=== PATIENT | female | born 1985 | race Caucasian/White ===

== ENCOUNTER 2019-09-25 13:03 | Emergency (ER) | payer BC ==
--- OUTSIDE RECORDS SUMMARY | 2019-09-25 13:26 | XMS REPORT | Continuity of Care Document ---
:1985 Author Organization 0001 - [facility] [employer] Address [address] [place] [address] Phone Care Team Providers Name Role Phone GENERIC, NURSE Unavailable Unavailable Allergies, Adverse Reactions, Alerts Substance Reaction Status lisinopril dry cough Active POTASSIUM CLAVULANATE Hives Active AMOXICILLIN TRIHYDRATE Hives Active Medications Medication Instructions Dosage Effective Dates Status Comments (start - stop) clindamycin HCl 150 take 1 capsule by 150 MG - Active mg capsule oral route every 6 hours amlodipine 10 mg take 1 tablet by 10 MG - Active tablet oral route every day cetirizine 10 mg take 1 tablet by 10 MG - Active tablet oral route every day Saline Nasal 0.65 % 2 sprays to each - Active spray aerosol nostril 3xday as needed for congestion and ear pain amlodipine 5 mg take 1 tablet by 5 MG - Active tablet oral route every day irbesartan 150 take 1 tablet by 1.00 tablet - Active mg-hydrochlorothiaz oral route every adriane 12.5 mg tablet day meclizine 25 mg take 1 tablet by 25 MG - Active tablet oral route 3 times every day as needed MISCELLANEOUS CPAP Mask for the - Active nose due to sleep apnea amlodipine 5 mg take 1 tablet by 5 MG - No Longer tablet oral route every Active day irbesartan 150 take 1 tablet by 1.00 tablet - No Longer mg-hydrochlorothiaz oral route every Active adriane 12.5 mg tablet day Problems Condition Effective Dates (start - stop) Clinical Status Essential (primary) hypertension - Otalgia of both ears Essential (primary) hypertension Body mass index (BMI) 70 or greater, adult Acute otitis media with effusion of left ear Dizziness Essential (primary) hypertension Pre-op evaluation Abnormal bleeding in menstrual cycle Essential (primary) hypertension Elevated blood sugar Encounter for other preprocedural - examination Pre-op evaluation Essential (primary) hypertension Abnormal bleeding in menstrual cycle Essential (primary) hypertension Headache Positive urine test Rectal bleeding Essential (primary) hypertension Type 2 diabetes mellitus without complications Essential (primary) hypertension Discoloration of skin of multiple sites of lower extremity Essential (primary) hypertension Obesity, unspecified Body mass index (BMI) 70 or greater, - adult BMI 60.0-69.9, adult Essential (primary) hypertension Other obesity due to excess calories Essential (primary) hypertension - Family history of diabetes mellitus - Essential (primary) hypertension Family history of diabetes mellitus Obesity, unspecified Type 2 diabetes mellitus without complications Bronchitis Encounter for gynecological examination (general) (routine) without abnormal findings Essential (primary) hypertension Type 2 diabetes mellitus without complications Obesity, unspecified Type 2 diabetes mellitus without - complications Essential (primary) hypertension - Hospital discharge follow-up Type 2 diabetes mellitus without complication Essential hypertension with goal blood pressure less than 140/90 Morbid obesity with BMI of 70 and over, adult Body mass index (bmi) 70 or greater, adult Sleep apnea, unspecified Numbness in hand Upper Respiratory Infection, Acute Bronchitis Cough Hypertension Upper Respiratory Infection, Acute Bronchitis Hypertension, benign essential Hypertension, benign essential Headache Headache Sleep apnea Hypertension, benign essential Change in facial mole Skin tag Obesity Menorrhagia due to intrauterine device Menorrhagia Encounter For Removal And - Reinsertion Of Intrauterine Contraceptive Device Encounter For Removal Of Intrauterine Contraceptive Device Encounter For Insertion Of Intrauterine Contraceptive Device Insect bites Poison levon Rash, oth nonspecific skin eruption Obesity Rash of face Rash, oth nonspecific skin eruption - Vaginitis Vaginitis - Hx, family, diabetes mellitus Obesity Hx, family, diabetes mellitus - Obesity - Family history of diabetes mellitus Obesity Hx, family, diabetes mellitus - Obesity - Contraceptive education Contraceptive management NOS - Upper Respiratory Infection, Acute Dental abscess Upper Respiratory Infection, Acute - Abscess, periapical w/o sinus - IUD check up Contraceptive surveillance, IUD - Dermatitis NOS - Ingrowing nail - Dermatophytosis, hand - Dermatitis NOS - Neop, NOS, bone/soft tissue/skin - Dermatitis NOS Dermatitis NOS - Dermatitis NOS Superficial abrasion Headache Dermatitis NOS - Abrasion NEC w/o infection - Headache - Eczema Dermatitis NOS - Abdominal pain Urinary Tract Infection Upper Respiratory Infection, Acute Upper Respiratory Infection, Acute Upper Respiratory Infection, Acute Sinusitis, Acute Upper Respiratory Infection, Acute Routine Medical Exam Cellulitis/abscess, buttock Gynecological Examination Contraceptive surveillance, IUD Bronchitis Pain, referred, ear Check, routine, infant/child - Upper Respiratory Infection, Acute Acute Upper Respiratory Infection, Acute Acute Sinusitis, Acute Acute Upper Respiratory Infection, Acute Acute Disorder, gallbladder NEC Acute Adverse effect, antibiotic NOS Acute Infection, up respirat, legal support assistant sites, Acute acute NEC Enteritis, viral NOS Acute Pain in limb Acute Nasopharyngitis, acute Acute Obesity Complicating ; Chronic Antepartum Condition Hypertension, benign essential Chronic Obesity Complicating ; Fair control Antepartum Condition HTN, benign, complg preg/, Fair control antepartum HTN, benign, complg preg/, Fair control antepartum Annual DIRECTOR E LEARNING exam w/ Pap Smear Good control Contraceptive surveillance, IUD Good control follow-up Good control HTN, benign, complg preg/, Good control antepartum HTN, benign, complg preg/, Good control antepartum Otalgia NOS Mild Neoplasm of skin of face Pending workup Eczema Poorly controlled Ingrown right big toenail Poorly controlled Dermatophytosis, hand Poorly controlled Eczema Poorly controlled Pain, abdominal, right upper Poorly controlled quadrant OM, acute suppurative NOS Poorly controlled Pain, abdominal, right upper Poorly controlled quadrant Hypertension, benign essential Poorly controlled OM, acute suppurative NOS Poorly controlled Rhinitis, allergic NOS Recurrent Routine Medical Exam Routine Procedures Procedure Date Procedure Unknown Results Test Name Date and Time Measure Units Reference Range Abnormal Flag Status Comments Unknown Encounters Encounter Practice Location Reason(s) Diagnoses Date Provider Providers Description For Visit Copied on Encounter 2019 - [facility] Primary Essential b- GENERIC [facility] [place] (primary) 5202 NURSE. . 33-57 hypertension 0 [place], [address], [place] tel:[phone] 0001 - [facility] Primary Aug-0 RISING [employer], [place] 3-202 FABIANO. 54 33-57 0 [address] [place], [place], Street, [address]. Jb tel:+[phone] [place], [address], [place] tel:[phone] 0001 - [facility] Primary Otalgia of [employer]ISING [employer], [place] both 0- FABIANO. 54 33-57 earsEssential 0 [facility] (primary) [place], [place], [place], hypertensionBo [address]. Jb dy mass index tel:[phone] [place], (BMI) 70 [place] [address], greater, adult tel:[phone] 0001 - [facility] Primary Jul- [employer]ISING [employer], [place] 7202 FABIANO. 54 33-57 0 [place], [place], Street, [address]. Jb tel:+[phone] [place], [address], [place] tel:[phone] 2019 - [facility] Primary Acute otitis Nov-2 EDWARD [employer], [place] media with 1-201 [place]. 33-57 effusion of 9 54 [facility], earDizzinessEs [address]. Jb sential tel:[phone] [place], (primary) [address], hypertension tel:[phone] 2019 - S Primary Pre-op Sep-1 EDWARD [employer], [place] evaluationAbno 9-201 [place]. 33-57 rmal bleeding 9 54 Main [facility] in menstrual [place], [place], [place], cycleEssential [address]. Jb (primary) tel:+[phone] [place], hypertension [address], [place] tel:[phone] 0001 - [facility] Primary Elevated blood Aug-2 [facility]ISING [facility], [facility] [place] sugar 3-201 FABIANO. 54 33-57 9 [place], [place], [place], [address]. Jb tel:+[phone] [place], [address], [place] tel:[phone] 0001 - [facility] Primary Encounter for Aug-2 [facility]ISING [facility] [place] other 1-201 FABIANO. 54 33-57 preprocedural 9 [facility] examination [place], [place], Street, [address]. Jb tel:+[phone] [place], [address], [place] tel:[phone] 0001 - [facility] Primary Pre-op Feb-1 [facility]ISING [facility], [place] evaluationEsse 9-201 FABIANO. 54 33-57 ntial 9 [facility] (primary) [place], [place], hypertensionAb [address]. Jb normal tel:+[phone] [place], [place] [address], [place] menstrual tel:[phone] 0001 - [facility] Primary Essential Apr-2 EDWARD [facility], [place] (primary) 9201 [place]. 33-57 hypertensionHe 9 54 [facility] adache [place], Street, [address]. Jb tel:+[phone] [place], [address], [place] tel:[phone] 0001 - [facility] Primary Positive urine Salty-2 EDWARD [facility] [place] test 8-201 [place]. 33-57 9 54 [place], [place], [place], [address]. Jb tel:+[phone] [place], [address], [place] tel:[phone] 0001 - [facility] Primary Rectal Nov-0 [facility]ISING [facility], [place] bleedingEssent 2-201 FABIANO. 54 33-57 ial (primary) 8 [facility] hypertension [place], Street, [address]. 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 . 33-57 Health mellitus 8 [facility], [place], [address], [place] tel:[phone] 0001 - S Primary Essential Dec-0 RISING [employer], [place] (primary) 5-201 FABIANO. 54 33-57 hypertension 7 [place], [place], Street, [address]. Jb tel:+[phone] [place], [address], [place] tel:[phone] 0001 - S Primary Discoloration Sep-2 RISING S Inc, [place] of skin of 5-201 FABIANO. 54 33-57 multiple sites 7 [facility] of [place], [place], Street, [facility] center[facility] [address]. Jb tial (primary) tel:+[phone] [place], hypertensionOb [address], [place] esity, tel:[phone] [phone] y mass index (BMI) 70 or greater, adult 0001 - [facility] Primary BMI 60.0-69.9, Jan- EMELY [employer], [place] adultEssential 4-201 CARY. 260 33-57 (primary) 7 [facility] hypertensionOt Jb Senior, her obesity [place], [place] due [place] excess [address]. [place], calories tel:[phone], [place] [address] tel:[phone] 0001 - S Primary Essential Andre-1 EMELY [employer], [place] (primary) 2-201 CARY. 260 33-57 hypertensionFa 7 [facility] Jb Senior, of diabetes [place], [place] mellitus [address]. [place], tel:[phone], [place] [address] tel:[phone] 0001 - S Primary Essential Andre-0 EMELY [facility] [place] (primary) 3-201 CARY. 260 33-57 hypertensionFa 7 [facility] history Jb Senior, of diabetes [place], Jb mellitusObesit [address]. [facility], [place], y, unspecified tel:[phone], [place] [address] tel:[phone] 0001 - [facility] Type 2 Simone-0 [employer]ACHERS [employer] Inc, Population diabetes 5-201 CARE. . 33-57 Health mellitus [address] [place] [address], [place], [address], [place] tel:[phone] 0001 - S Primary Bronchitis Salty- SALDANA S Inc, [place] 3-201 TENA. 54 33-57 7 [facility], Street, [place] [address]. [place], tel:[phone], [place] [address] tel:[phone] 0001 - [facility] Primary Encounter for Apr-0 EMELY S Inc, [place] gynecological 5- CARY. 260 33-[address] [facility] (general) Jb Senior, (routine) [place], [place] without [address]. [place], abnormal tel:[phone], [place] findings [address] tel:[phone] 0001 - [facility] Primary Essential May-0 CALLEO [employer] Inc, [place] (primary) 3- JACOB. 116 [address] 33-[address], [place] pe 2 diabetes [place], [place], Street, mellitus [address]. Jb without tel:[phone] [place], complicationsO [address], [place] besity, tel:[phone] 0001 - S Primary Type 2 Apr-1 SALDANA [employer] Inc, [facility] [place] diabetes 4-201 TENA. 54 33-57 mellitus 6 [facility] without SPC, Street, complicationsE [place], [place], Jb ssential [address]. [place], (primary) tel:[phone], [place] hypertension [address] tel:[phone] 0001 - [facility] Primary Hospital Apr-0 CALLEO S Inc, [facility] [place] discharge JACOB. 116 N 33-57 follow-upType 6 Francis Ibrahim, [place] 2 diabetes [place], [place], [place], mellitus [address]. Jb without tel:[phone] [place], [place], complicationEs [address], [place] sential tel:[phone] with goal blood pressure less than 140/90Morbid obesity with BMI of 70 and over, adultBody mass index (bmi) 70 or greater, adultSleep apnea, unspecified 0001 - [facility] Primary Apr-0 GLOSENGER [facility] [place] 1-201 SARAH. 59 33-57 6 [facility], [facility], [place] [address]. [place], tel:[phone], [place] [address] tel:[phone] 0001 - [facility] Primary Numbness in Apr-0 GLOSENGER [facility], [facility] [place] handUpper 9-201 SARAH. 59 33-57 Respiratory 5 [facility], [place] Infection, [facility], [place], [place] [address]. [place], tel:[phone], [place] [address] tel:[phone] 0001 - [facility] Primary Bronchitis Nov-0 GLOSENGER [facility] [place] 6-201 SARAH. 59 33-57 4 [facility], [facility], [place] [address]. [place], tel:[phone], [place] [address] tel:[phone] 0001 - [facility] Primary CoughHypertens Oct-2 SCHECTER [facility] [place] ion 3-201 SUZY. 33-57 [address] [facility] [address] [place], [place] [address]. [place], tel:[phone], [place] [address] tel:[phone] 0001 - [facility] Upper Oct-1 SCHECTER [facility] [place] Respiratory 7-201 SUZY. 33-57 Infection, 4 [address] [facility] [address] [place], [place] [address]. [place], tel:[phone], [place] [address] tel:[phone] 0001 - [facility] Primary Bronchitis Oct-0 GLOSENGER S Inc, [place] 3-201 SARAH. 59 33-57 4 [address] , [facility], [place] [address]. [place], tel:[phone], [place] [address] tel:[phone] 0001 - S Primary Hypertension, SALDANA S Inc, [facility] [place] benign 2-201 TENA. 54 33-57 essential 4 Main , [facility], [place] [address]. [place], tel:[phone], [place] [address] tel:[phone] 0001 - [facility] Primary Hypertension, SALDANA S Inc, [facility] [place] benign 1-201 TENA. 54 33-57 essentialHeada 4 [address] [facility], [place] [address]. [place], tel:[phone], [place] [address] tel:[phone] 0001 - [facility] Primary HeadacheSleep SALDANA [employer] Inc, [place] apneaHypertens 3-201 TENA. 54 33-57 ion, benign 4 Main [facility], [place] [address]. [place], tel:[phone], [place] [address] tel:[phone] 0001 - S Primary Change in SCHECTER S Inc, [place] facial SUZY. 57 moleSkin 4 [address] [facility] tag[address] [place], [place] [address]. [place], tel:[phone], [place] [address] tel:[phone] 0001 - S Primary Menorrhagia AKIL MELGAR. S Inc, [place] due to [address] 33-[address], [place] deviceMenorrha [facility], [address]. Jb tel:[phone] [place], [address], [place] tel:[phone] 0001 - S Primary Encounter For AKIL MELGAR. S Inc, [place] Removal And [address] [facility] 33-[address], [place] Intrauterine [place], [place], [facility], [address]. Jb DeviceEncounte tel:[phone] [place], r For Removal [address], [place] Of tel:[phone] Intrauterine [phone] Contraceptive DeviceEncounte r For Insertion Of Intrauterine Contraceptive Device 0001 - S Primary Insect bites Dec- SALDANA S Inc, [place] 7-201 TENA. 54 33-57 3 Main [facility], [place] [address]. [place], tel:[phone], [place] [address] tel:[phone] 0001 - S Primary Poison levon Simone- SCHECTER Referring S Inc, [place] 2-201 SUZY. Provider: 57 3 [address] [facility], [facility], [place], [place], [address] [place] [address]. [facility], [place], tel:[phone] [place], [address], [place] [address]. tel:+60 tel:[phone] 0001 - S Primary Rash, oth Simone-0 SCHECTER S Inc, [place] nonspecific 4 SUZY. 57 skin 3 4417 [address] Darnell eruptionObesit [facility], [place] [address]. [place], tel:[phone], [place] [address] tel:[phone] 0001 - S Primary Rash of Mar-2 SCHECTER S Inc, [place] faceRash, oth 7-201 SUZY. nonspecific 3 4417 [address] Darnell skin [place] [address]. [place], tel:[phone], [place] [address] tel:[phone] 0001 - S Primary VaginitisVagin Feb- AKIL MELGAR. S Inc, [place] itis [address], [place], [address]. Jb tel:[phone] [place], [address], [place] tel:[phone] 0001 - [facility] Primary Hx, family, Aug- GLOSENGER S Inc, [place] diabetes SARAH. 59 33-57 mellitusObesit [address] , [place] yx, family, [facility], Street, diabetes [place], [place], [place] mellitusObesit [address]. [facility], [place], [place] tel:[phone], [place] [address] tel:[phone] 0001 - [facility] Primary [facility]- [facility] [place] of diabetes VINICIUS. 54 -57 mellitusObesit [address] , [place] y, family, [place], [place], diabetes [address]. Jb mellitusObesit tel:[phone] [place], [place] [address], [place] tel:[phone] 0001 - [facility] Primary Contraceptive May-0 BOR RAMÓN. [facility] Inc, [place] educationContr [address] 33-57 aceptive 2 [place], [address]. Jb tel:[phone] [place], [address], [place] tel:[phone] 0001 - [facility] Primary Upper Apr-0 [facility], [place] Respiratory VINICIUS. 54 Provider: Infection, 2 Main , [facility] AcuteDental [place], ZEE, Street, abscessUpper [address]. [facility], Jb Respiratory tel:[phone] [place], [place], [place]fection, [address]. [address], [place] AcuteAbscess, tel:[phone] tel:[phone] periapical w/o [phone] sinus 0001 - [facility] Primary IUD check Feb-0 FRANK S Inc, [place] upContraceptiv TENA. 54 33-57 e [address] , [place] surveillance, [facility], Street, [place] [address]. [place], tel:[phone], [place] [address] tel:[phone] 0001 - S Primary EczemaDermatit Nov SALDANA S Inc, [place] is NOS TENA. 54 33-57 1 [facility], Street, [place] [address]. [place], tel:[phone], [place] [address] tel:[phone] 0001 - S Primary Ingrown right [facility] Inc, [place] big 0 TENA. 54 33-57 toenailDermato 1 [facility], [facility], Street, handIngrowing [place], Jb nailDermatophy [address]. [place], tosis, hand tel:[phone], [place] [address] tel:[phone] 0001 - [facility] Primary EczemaNeoplasm SALDANA Referring S Inc, [place] of skin of TENA. 54 Provider: 33-57 faceDermatitis 1 [facility] NOSNeop, NOS, [facility], [place] F, 54 [place], bone/soft [place], [facility] tissue/skin [address]. [facility], [place], tel:[phone] [place], [address], [place] [address]. tel:+60 tel:[phone] 0001 - S Primary Dermatitis ZEE Referring S Inc, [place] NOSDermatitis VINICIUS. 54 Provider: 33-57 NOS 1 [facility] [place], ZEE, [address] [place] [address], [address]. [facility] tel:[phone] [place], [place], [place], [address]. [address], tel:[phone] tel:[phone] 0001 - S Primary Dermatitis Jan-2 ZEE S Inc, [place] NOSSuperficial 0 VINICIUS. 54 33-57 abrasionHeadac 1 [facility] Darnell heDermatitis [place], Street, NOSAbrasion [address]. Jb NEC w/o tel:[phone] [place], infectionHeada [address], [place] ji tel:[phone] 0001 - S Primary EczemaDermatit Simone-0 GLOSENGER S Inc, [place] is NOS 6-201 SARAH. 59 33-57 1 Main [facility], Street, [place] [address]. [place], tel:[phone], [place] [address] tel:[phone] 0001 - S Primary Abdominal Apr-2 ZEE S Inc, [place] painUrinary 8-201 VINICIUS. 54 33-57 Tract 1 Main Darnell Infection [place], Street, [address]. Jb tel:[phone] [place], [address], [place] tel:[phone] 0001 - S Primary Upper Feb-1 ZEE Referring S Inc, [place] Respiratory 0-201 VINICIUS. 54 Provider: 33-57 Infection, 1 [facility] [place] AcuteUpper [place], ZEE, [address], Respiratory [address]. [facility] Infection, tel:[phone] [place], [place], AcuteUpper [address]. [address], [place] Respiratory tel:[phone] tel:[phone] Infection, [phone] [phone] AcuteUpper Respiratory Infection, AcuteUpper Respiratory Infection, Acute 0001 - S Primary Sinusitis, Dec-2 ZEE Referring S Inc, [place] AcuteSinusitis 8-201 VINICIUS. 54 Provider: 33-57 , Acute 0 [address] , VINICIUS [place], [place], ZEE, [address], [address]. [facility] tel:[phone] [place], [place], [address]. [address], [place] tel:[phone] tel:[phone] 0001 - S Primary Upper Nov-0 ZEE Referring S Inc, [place] Respiratory 2-201 VINICIUS. 54 Provider: 33-57 Infection, [address], VINICIUS Becerra AcuteUpper [place], Z[place], Street, Respiratory [address]. Main , Jb Infection, tel:[phone] [place], [place], [place] [address]. [address], [place] tel:[phone] tel:[phone] 0001 - [facility] Primary Routine Oct-2 GLOSENGER S Inc, [place] Medical 7 SARAH. 59 33-57 ExamRoutine 0 [facility]ign[facility] Exam [facility], [place], [place] [address]. [place], tel:[phone], [place] [address] tel:[phone] 0001 - [facility] Primary Cellulitis/abs Aug- GLOSENGER S Inc, [place] cess, buttock SARAH. 59 33-57 0 [facility], [facility], [place] [address]. [place], tel:[phone], [place] [address] tel:[phone] 0001 - [facility] Primary Gynecological Andre-2 CAPISTA S Inc, [place] ExaminationCon 6 MAC. 33-57 traceptive 0 [facility] [address] [facility], [facility] [address], Street, IUD [facility], [place], [place], [place], [address], [place]. [address], [place] tel:[phone] tel:[phone] 0001 - S Primary Pain, Apr-0 GLOSENGER Referring S Inc, [place] abdominal, SARAH. 59 Provider: 33-57 right [address], SARAH Darnell quadrantDisord [facility], [facility], [place], er, [place], [address] Jb gallbladder [address]. [facility], [place], [facility] tel:[phone] [place], [address], [place] [address]. tel:+[phone] tel:[phone] 0001 - S Primary Bronchitis Mar- ZEE Referring S Inc, [place] 7 VINICIUS. 54 Provider: 33-57 0 [facility] [place], [place], [facility], [address] [place] [address], [address]. [facility] tel:[phone] [place], [address]. [address], [place] tel:[phone] tel:[phone] 0001 - S Primary Adverse Sep- FRANK S Inc, [place] effect, 0-201 TENA. 54 33-57 antibiotic NOS 0 [facility], [place], [place] [address]. [place], tel:[phone], [place] [address] tel:[phone] 0001 - [facility] Primary Pain, FRANK Referring S Inc, [place] referred, ear 6-201 TENA. 54 Provider: 33-57 0 [facility], [facility], [address] [place] [address], [facility] [facility] [address]. [facility], [place], [place], tel:[phone] [place], [address], [place] [address]. tel:[phone] tel:[phone] 0001 - [facility] Primary Annual DIRECTOR E LEARNING [place] [facility] Inc, [facility] [place] exam w/ Pap 3-200 MAC. 33-57 Smear 9 [facility] [address] [facility], [place], [facility], [place], [place], [place], [address], [place]. [address], [place] tel:[phone] tel:[phone] 0001 - S Primary Infection, up ZEE Referring S Inc, [facility] [place] respirat, legal support assistant 9-200 VINICIUS. 54 Provider: 33-57 sites, acute 9 [facility] [place], [address], [address]. [facility] tel:[phone] [place], [address]. [address], [place] tel:[phone] tel:[phone] 0001 - S Primary OM, acute FRANK Referring [facility], [facility] [place] suppurative 2-200 TENA. 54 Provider: 33-57 NOSPain, 9 [facility], TENA Becerra abdominal, [facility], FRANK Ward, [address] [place], right upper [facility] [address]. [facility], [place], tel:[phone] [place], [address], [place] [address]. tel:[phone] tel:[phone] 0001 - S Primary Contraceptive Sep-2 [facility] [place] surveillance, 2-200 MAC. 3357 IUD 8 [facility] [address] [facility], [place], [facility], [place], [place], [place], [address], [place]. [address], [place] tel:[phone] tel:[phone] 0001 - S Primary Hypertension, Andre-1 SALDANA S Inc, [facility] [place] benign 0-200 TENA. 54 57 essentialOtalg 8 [facility] NOS [facility], [facility] [address]. [place], tel:[phone], [place] [address] tel:[phone] 0001 - S Primary Andre-0 [facility] [facility] [place] follow-up 7-200 MAC. 3357 8 [facility] [address] [facility], [place], [facility], [place], [place], [place], [address], [place]. [address], [place] tel:[phone] tel:[phone] 0001 - S Primary OM, acute Simone- FRANK Referring S Inc, [facility] [place] suppurative 2-200 TENA. 54 Provider: 33-57 NOS 8 [facility], FRANK Ward, [address] [place], [place], [facility] [address]. [facility], [place], tel:[phone] [place], [address], [place] [address]. tel:[phone] tel:[phone] 0001 - S Primary HTN, benign, Mar-2 [facility] [place] complg 4-200 MAC. 33-57 preg/, 8 [facility] [address] [place] antepartum [facility], [facility], [place], [place], [place], [address], [place]. [address], [place] tel:[phone] tel:[phone] 0001 - [facility] Primary Obesity Feb- [facility] [place] Complicating 5-200 33-57 ; [address] [place], [address], [place] tel:[phone] 0001 - [facility] Primary HTN, benign, [facility] [place] complg 8-200 MAC. 33-57 preg/, 8 [facility] [address] antepartum [facility], [facility], [place], [place], [place], [address], [place]. [address], [place] tel:+ tel:[phone] 0001 - [facility] Primary HTN, benign, [facility] [place] complg 4-200 MAC. 33-57 preg/, 8 [facility] [address] antepartum [facility], [facility], [place], [place], [place], [address], [place]. [address], [place] tel:+ tel:[phone] 0001 - [facility] Primary Obesity Dec- [facility] [place] Complicating 7-200 MAC. 33-57 ; 7 [facility] [address] Antepartum [facility], Critical access hospital, [facility], [facility], [place], [place], [place], [place], preg/, [address], [place]. [address], [place] antepartum tel:+ tel: [phone] 0001 - [facility] Primary Hypertension, Nov- [facility] [place] benign 6-200 MAC. 33-57 essential 7 [facility] [address] [facility], [place], [facility], [place], [place], [address], [place]. [address], [place] tel:[phone] tel:[phone] 0001 - [facility] Primary Enteritis, CANDOR Referring [facility] Inc, [facility] [place] viral NOS 7-200 SUNDAY. . Provider: 33-57 7 SUN[place], [address], tel:[phone] 0001 [facility] Primary Pain in OLIVIA Referring [facility] Inc, [facility] [place] limbRhinitis, 7-200 JUAN DIEGO. [address] W Provider: 33-57 allergic NOS 7 [facility] JUAN DIEGO [facility], [facility], [place], [place], E, [address] [facility] [address]. [place], [place], tel:[phone] [place] [address], [address]. tel: tel:[phone] 0001 - [facility] Primary Check, [facility] Inc, [facility] [place] routine, 5-200 TENA. 54 33-57 infant/child 6 [facility], [facility] [address]. [place], tel:[phone], [address] tel:[phone] 0001 - [facility] Primary Nasopharyngiti Dec-0 [facility] Inc, [place] s, acute 8-200 TENA. 54 33-57 5 [facility], [facility] [address]. [place], tel:[phone], [address] tel:[phone] 0001 - [facility] Primary Jan-0 ZEE [facility], [facility] [place] 5-200 VINICIUS. 54 33-57 5 [place] [address]. [place] tel:[phone] [place], [place], [address] [place] [address], tel:[phone] Family History Family Member Diagnosis Age At Onset Maternal grandfather Myocardial infarction Paternal grandfather cancer Maternal grandmother Cancer, bladder Paternal uncle Diabetes mellitus Paternal grandfather Diabetes mellitus Paternal aunt Down's Syndrome Immunizations Vaccine Date Status Comments hep B (ped/adol, 3 dose) administered Note: Abstracted -2005 ; Source: New Immunization Record hep B (ped/adol, 3 dose) administered Note: Abstracted -2005 ; Source: New Immunization Record hep B (ped/adol, 3 dose) administered Note: Abstracted -2005 ; Source: New Immunization Record Td (adult) administered Note: Abstracted -02/20/2006 ; Source: New Immunization Record MMR administered Note: Abstracted -02/20/2006 ; Source: New Immunization Record HIB administered Note: Abstracted -02/20/2006 ; Source: New Immunization Record DT (pediatric) administered Note: Abstracted 02/20/2006 ; Source: New Immunization Record OPV administered Note: Abstracted -02/20/2006 ; Source: New Immunization Record MMR administered Note: Abstracted 02/20/2006 ; Source: New Immunization Record DTP administered Note: Abstracted 02/20/2006 ; Source: New Immunization Record DT (pediatric) administered Note: Abstracted -02/20/2006 ; Source: New Immunization Record OPV administered Note: Abstracted -02/20/2006 ; Source: New Immunization Record DTP administered Note: Abstracted -02/20/2006 ; Source: New Immunization Record DT (pediatric) administered Note: Abstracted 02/20/2006 ; Source: New Immunization Record OPV administered Note: Abstracted 02/20/2006 ; Source: New Immunization Record DTP administered Note: Abstracted -02/20/2006 ; Source: New Immunization Record OPV administered Note: Abstracted -02/20/2006 ; Source: New Immunization Record DTP administered Note: Abstracted -02/20/2006 ; Source: New Immunization Record Payers Payer name Insurance type Covered democrat ID Authorization(s) Олег Gifford [id number] Social History Type Description Quantity Date Captured Comments Alcohol Use Details Unknown Caffeine Use Details Unknown Tobacco Use Status Unknown Smoking Status Unknown Vital Signs Date / Height Weight BMI Pulse Blood Temperature Respiratory Body Head BMI Time: Rate Pressure Rate Surface Circumference percentile Area Unknown Chief Complaint And Reason For Visit No information Reason For Referral Reason For Referral Unknown Plan Of Care Date Type Action Status Referral Ordered: ordered Gastroenterology (related to Rectal bleeding) Referral Ordered: ordered Referrals: Gastroenterology. Evaluate and treat Appointment date/timeframe: 3 Weeks Referral Ordered: ordered U/S Vascular Arterial Duplex lower extremity bilateral Appointment date/timeframe: 05/01/2017 Referral Ordered: ordered Referrals: Casino Assistant Manager. Consult Referral Ordered: ordered . Hand Surgery. Consult and treat. Appointment date/timeframe: 11/06/2014 Referral Ordered: ordered CT Brain/Head w/o Contrast Referral Ordered: ordered . Sleep Disorders. Appointment date/timeframe: 02/23/2014 Referral Ordered: ordered . Weight loss clinic. Consult and treat. Referral Referred To: ordered samadol Ordered: samadol. Dermatology. Consult and treat. Appointment date/timeframe: 10/14/2013 Referral Ordered: ordered U/S Transvaginal DIRECTOR E LEARNING Appointment date/timeframe: 03/26/2013 Referral Ordered: ordered . Weight loss surgery. Consult and treat. Referral Ordered: ordered . Dermatology. Consult and treat. Appointment date/timeframe: 03/06/2013 Referral Referred To: ordered PONCE PRUITT [facility] [address] [place], [phone] Ordered: PONCE PRUITT. Otolaryngology. Consult and treat. Appointment date/timeframe: 03/28/2011 Referral Ordered: ordered CT Abdomen & Pelvis w & w/o Contrast Appointment date/timeframe: 11/26/2010 Referral Ordered: ordered . Genrl Surg. Referral Ordered: ordered . General Surgery. Consult and treat. Appointment date/timeframe: 01/16/2008 Appointment BETTINA KWOK Type Problem Goal Intervention Status Start Date Goal Gaps: BP 143/89 on close gaps 07/03/2017, eye exam, A1C 5.9% on 02/07/2017, nephropathy. Goal Gaps: BP 150/101 on close gaps. 08/21/2016, A1C 6.6% on 11/11/2015. History Of Present Illness Encounter Date Complaint History Of Present Illness No information Functional Status Encounter Date Functional Assessment Cognitive Assessment Unknown Medications Administered Medication Instructions Dosage Effective Dates (start - stop) Status Comments Drug Treatment Unknown Instructions Date Instruction Additional Information we will work on getting blood pressure Related to Body mass index (BMI) under control and then discuss 70 or greater, adult medication options extensive discuss regarding diet and exercise discussed with patient today. plus a weight loss program but pts insurance does not cover any weight loss programs. Something we should look into further use the cetrizine 10mg once per day. Related to Otalgia of both ears normal saline 2 sprays to each nostril 3xday. increase Amlodipine to 10mg once per Related to Essential ( primary) day. continue with the irbesartan/hctz hypertension at current dose. Risks and benefits of new medication discussed.stop in on Sunday next week for blood pressure check and then we will set up an appt to discuss further options for weight loss, plus you will need updated lab work Patient advised to continue amlodipine, Related to Essential ( primary) irbesartanhydrochlorothiazide as hypertension previously directed. Goal BP <140/90. Maintain a low-sodium diet (less than 2 grams per day). DASH diet recommended for patients with high blood pressure. Advised to exercise for at least 30min/day, 5 times per week. Advised to monitor BP at home and call office or bring in readings. May stop into office for BP check when necessary or if symptomatic. Advised to call office or go to ED for chest pain, shortness of breath, unresolvable headache, dizziness/lightheadedness, or changes in vision. Patient given meclizine 25 mg to use as Related to Dizziness needed for episodes of dizziness in addition to antibiotic to treat acute otitis media of left ear. Patient advised to contact office in 2 to 3 days if no improvement in symptoms with medications. Patient had no further concerns at this time Cefdinir 1 tablet every 12 hours for 7 Related to Acute otitis media days. Risks and benefits of new with effusion of left ear medication discussed. Patient advised to contact office for worsening or unresolved symptoms. Patient advised to contact office if dizziness does not improve after first 2 to 3 days of taking antibiotic. Goal BP <140/90. Maintain a low-sodium Related to Essential ( primary) diet (less than 2 grams per day). DASH hypertension diet recommended for patients with high blood pressure. Advised to exercise for at least 30min/day, 5 times per week. Advised to monitor BP at home and call office or bring in readings. May stop into office for BP check when necessary or if symptomatic. Advised to call office or go to ED for chest pain, shortness of breath, unresolvable headache, dizziness/lightheadedness, or changes in vision. Surgery 04/24/2019 Related to Abnormal bleeding in menstrual cycle surgery 03/20/19 Related to Abnormal bleeding in menstrual cycle patient is okay to go to surgery Related to Pre-op evaluation preoperative cardiac clearance risk completed. patient with sleep apnea history-use precaution if General anesthesia is usedpatient is extremely overweightLabs reviewed, blood sugar slightly elevated, needs full workup-no reason to hold surgeryEKG normal Sinus RhythmMedication reviewed to hold NSAIDS and Asprin prior to surgery change medication to :Irbesartan/hctz at Related to Essential ( primary) dose of 300/25mg 1 tab dailyAmlodipine hypertension 5mg once per dayStop in on Sunday for BP checkAddendum: blood pressure has improved with medication change 130/62 May take Tylenol/Motrin or Excedrin for Related to Headache headaches. Advised to take BP at onset of JUAREZ to determine if associated with an increase in BP. Will continue to monitor. Goal BP <140/90. Maintain a low-sodium Related to Essential ( primary) diet (less than 2 grams per day). DASH hypertension diet recommended for patients with high blood pressure. Advised to exercise for at least 30min/day, 5 times per week. Advised to monitor BP at home and call office or bring in readings. May stop into office for BP check when necessary or if symptomatic. Advised to call office or go to ED for chest pain, shortness of breath, unresolvable headache, dizziness/lightheadedness, or changes in vision. Patient will be contacted by office for Related to Positive urine testing results. test Referral to GI. If rectal bleeding Related to Rectal bleeding worsens or you develop any other symptoms of abdominal pain or dizziness or large amount of blood in the toilet then please go to the ER for evaluation Increase your Irbesartan to 300mg once Related to Essential ( primary) per day. Consume a low salt diet with hypertension sodium intake of 1500mg per day, daily exercise of at least 30 minutes per day most days of the week and maintain an ideal body weight. Avoid stimulants such as caffeine, nicotine, and moderate alcohol intake. Goal for blood pressure is less than 140/90. Will increase valsartan to 160mg once Related to Essential ( primary) per day, and continue with hypertension hydrochlorothiazide at current dose. Complete ultrasound of lower Related to Discoloration of skin extremities, use compression stockings of multiple sites of lower to help with swelling. extremity Continue with doing the Stick and Play program and Related to Obesity, unspecified continue cutting out the soda. Increase walking every day more and more. Consume a diet rich in fruits, vegetables, and low-fat dairy products with a reduced content of saturated and total fat. Consume no more than 2400mg of sodium/day. Start valsartan 80mg once per day, stop Related to Essential ( primary) amlodipine. Continue with hypertension hydrochlorothiazide. Trial of saxenda for wt loss. Pt ed Related to BMI 60.0-69.9, adult given on proper use of this medication. Risks and benefits of new medication discussed. Patient verbalized understanding. Will f/u in one month to discuss progress Much improved now taking meds regularly, Related to Essential ( primary) will continue to monitor and f/u with hypertension Dr. Saldana in one month All meds renewed, need to f/ u in office Related to Essential ( primary) in 2 weeks for recheck hypertension Diet, increased activity recommended, Related to Obesity, unspecified will check labs and see if she can follow through with staying on track with meds. Continue metformin as prescribed. Related to Type 2 diabetes continue to eat a diet low in carbs and mellitus without complications sugars.follow up in 3 months with fasting bloodwork before. referral to video game engineer.Educated on a low Related to Obesity, unspecified fat/low calorie diet and portion control. Exercise 3-4x/week for at least 30min and weight loss is encouraged. Try to avoid caffeine, soda and other sweetened beverages that contain soda. continue amlodipine as directed. start Related to Essential ( primary) hydrochlorathiazide as directed. would hypertension like to see your BP less that 140/90.Eat a DASH diet; rich in fruits, vegetables and low-fat dairy products. Try to reduce the sodium in your diet and do not add salt to your foods. Weight reduction encouraged and aerobic physical exercise at least 30 minutes per day for 4 days per weekMonitor your BP at home and write down readings. follow up in 1 month Risks and benefits of new medication discussed. Patient verbalized understanding continue to use CPAP everynight. Related to Sleep apnea, unspecified Continue amlodipine as prescribed. Related to Essential hypertension Would like to see your BP less than with goal blood pressure less 130/80. Eat a DASH diet; rich in than 140/90 fruits, vegetables and low-fat dairy products. Try to reduce the sodium in your diet and do not add salt to your foods. Weight reduction encouraged and aerobic physical exercise at least 30 minutes per day for 4 days per week. Monitor your BP at home.follow up in 2 weeks with fasting bloodwork prior to visit weight reduction encouraged Related to Morbid obesity with BMI of 70 and over, adult discharge instructions and meds reviewed Related to Hospital discharge with patient. follow up with pulmonology follow-up as scheduledfollow up with cardiology as scheduled Continue metformin as directed.Educated Related to Type 2 diabetes on a diabetic diet. Weight loss and mellitus without complication exercise 3-4x/ week is encouraged. Follow up in 2 weeks with fasting blood work prior to visit. ceftin and pulmicort Related to Bronchitis Start loratadine as prescribed. Continue Related to Cough with albuterol as needed for SOB/wheezing. Start pulmicort as prescribed. Continue prednisone as previously prescribed. OTC mucinex or tylenol cold as needed for symptom relief. Fluids and rest. Tylenol or ibuprofen as needed for pain or temp above 101. Continue amlodipine as previously Related to Hypertension prescribed. Start atenolol. BP high as target is less than 140/90 and preferably 110-130/50-80. No added salt diet and aerobic exercise at least every other day advised. Prednisone as prescribed. Albuterol as Related to Upper Respiratory needed for SOB/wheezing. OTC mucinex or Infection, Acute tylenol cold as needed for symptom relief. Fluids and rest. Tylenol or ibuprofen as needed for pain or temp above 101. BP goal less than 140/90. Try to get Related to Hypertension, benign exercise and no added salt. essential
[2019-09-25 13:29] LABS: ABS Lymphocytes 0.6 10^3/ul (1.0-4.8); ABS Monocytes 0.3 10^3/ul (0-0.8); ABS Neutrophils 3.3 10^3/ul (1.5-7.7); Eosinophil % 0.2 %; Hematocrit 43 % (35-47); Hemoglobin 14.4 g/dL (12.0-16.0); Lymphocyte % 13.6 %; Mean Corpuscular HGB Conc 33 g/dL (31-36); Mean Corpuscular Hemoglobin 27 pg (27-31); Mean Corpuscular Volume 81 fL (80-97); Mean Platelet Volume 7.7 fL (7.4-10.4); Nucleated Red Blood Cells % 0.1; Platelet Count 233 10^3/uL (150-450); Red Blood Count 5.37 10^6 /uL (3.70-4.87); Red Cell Distribution Width 17 % (10-15); White Blood Count 4.2 10^3/uL (3.5-10.8)
[2019-09-25 13:41] LABS: INR 1.24 (0.82-1.09)
[2019-09-25 13:42] LABS: Albumin 3.9 g/dL (3.2-5.2); Albumin/Globulin Ratio 1.1 (1-3); BUN/Creatinine Ratio 23.3 (8-20); Calcium 8.8 mg/dL (8.6-10.3); EGFR African American 139.3 (>60); EGFR Non-African American 115.1 (>60); Globulin 3.5 g/dL (2-4); Potassium 4.2 mmol/L (3.5-5.0); Total Bilirubin 0.5 mg/dL (0.2-1.0); Total Protein 7.4 g/dL (6.4-8.9)
[2019-09-25 13:44] LABS: Troponin I 0.01 ng/mL (<0.03)
--- NOTE | 2019-09-25 14:52 | ED ---
HPI Chest Pain - HPI Summary HPI Summary: 34 year old F arriving via private car to [facility] complains of an episode of mid sternal chest pain and shortness of breath while she was at work 3 hours ago. 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 She states the shortness of breath lasted for 15 minutes and has since resolved. She still has chest pain. Patient states she has never had these symptoms. Patient denies swelling in bilateral lower extremities. No recent travel. Symptoms aggravated by nothing. Symptoms alleviated by nothing. PMHx reviewed. Medications reviewed. Allergies noted. Home Medications Medication Instructions Recorded Confirmed Type Cetirizine* [ZyrTEC 10 MG TAB*] 10 mg PO DAILY 09/25/19 09/25/19 History Irbesartan/Hydrochlor 150/12.5 1 tab PO DAILY 09/25/19 09/25/19 History [Irbesartan/Hydrochlorothi 150-12.5 mg] Saline NASAL SPRAY 0.65%* [Sodium 2 spray BOTH NARES TID PRN 09/25/19 09/25/19 History Chloride 0.65% Nasal [place]*] amLODIPine TAB* [Norvasc 5 mg TAB*] 10 mg PO DAILY 09/25/19 09/25/19 History metFORMIN* [Glucophage 500 MG TAB 500 mg PO DAILY 09/25/19 09/25/19 History *] predniSONE 10 mg TAB [Deltasone 10 40 mg PO DAILY 09/25/19 09/25/19 History MG TAB*] - History of Current Complaint Chief Complaint: EDChestPainROMI Time Seen by Provider: 09/25/19 14:43 Hx Obtained From: Patient Onset/Duration: Started Hours Ago - 3, Still Present Timing: Constant Current Severity: None Pain Intensity: 0 Pain Scale Used: 0-10 Numeric Chest Pain Location: Mid Sternal Aggravating Factor(s): Nothing Alleviating Factor(s): Nothing Associated Signs and Symptoms: Positive: Negative - swelling in bilateral lower extremities - Allergy/Home Medications Allergies/Adverse Reactions: Allergies Allergy/AdvReac Type Severity Reaction Status Date / Time amoxicillin [From Augmentin] Allergy Unknown Verified 09/25/19 13:09 Reaction Details clavulanic acid Allergy Unknown Verified 09/25/19 13:09 [From Augmentin] Reaction Details Home Medications: Home Medications Cetirizine* [ZyrTEC 10 MG TAB*] 10 mg PO DAILY 09/25/19 [History Confirmed 09/25] Irbesartan/Hydrochlor 150/12.5 [Irbesartan/Hydrochlorothi 150-12.5 mg] 1 tab PO DAILY 09/25/19 [History Confirmed 09/25/19] Saline NASAL SPRAY 0.65%* [Sodium Chloride 0.65% Nasal [place]*] 2 spray BOTH NARES TID PRN 09/25/19 [History Confirmed 09/25/19] amLODIPine TAB* [Norvasc 5 mg TAB*] 10 mg PO DAILY 09/25/19 [History Confirmed 09/25/19] metFORMIN* [Glucophage 500 MG TAB *] 500 mg PO DAILY 09/25/19 [History Confirmed 09/25/19] predniSONE 10 mg TAB [Deltasone 10 MG TAB*] 40 mg PO DAILY 09/25/19 [History Confirmed 09/25/19] PMH/Surg Hx/FS Hx/Imm Hx Endocrine/Hematology History: Reports: Hx Diabetes - borderline Cardiovascular History: Reports: Hx Hypertension - Surgical History Surgery Procedure, Year, and Place: Hysterectomy. Toe surgery. T&A Infectious Disease History: No Infectious Disease History: Denies: Traveled Outside the [place] in Last 30 Days - Family History Known Family History: Positive: Hypertension, Diabetes, Other - cancer - Social History Alcohol Use: Rare Substance Use Type: Reports: None Hx Tobacco Use: No Smoking Status (MU): Never Smoked Tobacco Review of Systems Positive: Chest Pain Positive: Shortness Of Breath Negative: Edema All Other Systems Reviewed And Are Negative: Yes Physical Exam - Summary Physical Exam Summary: Appearance: The patient is morbidly obese in no acute distress and in no acute pain. Skin: The skin is warm and dry, and skin color reflects adequate perfusion. HEENT: The head is normocephalic and atraumatic. The pupils are equal and reactive. The conjunctivae are clear and without drainage. Nares are patent and without drainage. Mouth reveals moist mucous membranes, and the throat is without erythema and exudate. The external ears are intact. The ear canals are patent and without drainage. The tympanic membranes are intact. Neck: The neck is supple with full range of motion and non-tender. There are no carotid bruits. There is no neck vein distension. Respiratory: Chest is non-tender. Lungs are clear to auscultation and breath sounds are symmetrical and equal. Cardiovascular: Heart is regular rate and rhythm. There is no murmur or rub auscultated. There is no peripheral edema and pulses are symmetrical and equal. Abdomen: The abdomen is soft and non-tender. There are normal bowel sounds heard in all four quadrants and there is no organomegaly palpated. Musculoskeletal: There is no back tenderness noted. Extremities are non-tender with full range of motion. There is good capillary refill. There is no peripheral edema or calf tenderness elicited. Neurological: Patient is alert and oriented to person, place and time. The patient has symmetrical motor strength in all four extremities. Cranial nerves are grossly intact. Deep tendon reflexes are symmetrical and equal in all four extremities. Psychiatric: The patient has an appropriate affect and does not exhibit any anxiety or depression. Triage Information Reviewed: Yes Vital Signs On Initial Exam: Initial Vitals Temp Pulse Resp BP Pulse Ox 97.8 F 81 18 156/83 91 09/25/19 13:07 09/25/19 13:07 09/25/19 13:07 09/25/19 13:07 09/25/19 13:07 Vital Signs Reviewed: Yes Procedures - Sedation Patient Received Moderate/Deep Sedation with Procedure: No Diagnostics - Vital Signs Vital Signs Temp Pulse Resp BP Pulse Ox 09/25/19 13:07 97.8 F 81 18 156/83 91 - Laboratory Lab Results: Lab Results 09/25/19 09/25/19 09/25/19 Range/Units 13:13 13:13 13:13 WBC 4.2 (3.5-10.8) 10^3/uL RBC 5.37 H (3.70-4.87) 10^6 /uL Hgb 14.4 (12.0-16.0) g/dL Hct 43 (35-47) % MCV 81 (80-97) fL MCH 27 (27-31) pg MCHC 33 (31-36) g/dL RDW 17 H (10-15) % Plt Count 233 (150-450) 10^3/uL MPV 7.7 (7.4-10.4) fL Neut % (Auto) 78.6 % Lymph % (Auto) 13.6 % [place] % (Auto) 7.0 % Eos % (Auto) 0.2 % Baso % (Auto) 0.6 % Absolute Neuts (auto) 3.3 (1.5-7.7) 10^3/ul Absolute Lymphs (auto) 0.6 L (1.0-4.8) 10^3/ul Absolute Monos (auto) 0.3 (0-0.8) 10^3/ul Absolute Eos (auto) 0.0 (0-0.6) 10^3/ul Absolute Basos (auto) 0.0 (0-0.2) 10^3/ul Absolute Nucleated RBC 0.0 10^3/ul Nucleated RBC % 0.1 INR (Anticoag Therapy) 1.24 H (0.82-1.09) Sodium 135 (135-145) mmol/L Potassium 4.2 (3.5-5.0) mmol/L Chloride 100 L (101-111) mmol/L Carbon Dioxide 26 (22-32) mmol/L Anion Gap 9 (2-11) mmol/L BUN 14 (6-24) mg/dL Creatinine 0.60 (0.51-0.95) mg/dL Est GFR ( Amer) 139.3 (>60) Est GFR (Non-Af Amer) 115.1 (>60) BUN/Creatinine Ratio 23.3 H (8-20) Glucose 115 H (70-100) mg/dL Calcium 8.8 (8.6-10.3) mg/dL Total Bilirubin 0.50 (0.2-1.0) mg/dL AST 72 H (13-39) U/L ALT 74 H (7-52) U/L Alkaline Phosphatase 136 H (34-104) U/L Troponin I 0.01 (<0.03) ng/mL Total Protein 7.4 (6.4-8.9) g/dL Albumin 3.9 (3.2-5.2) g/dL Globulin 3.5 (2-4) g/dL Albumin/Globulin Ratio 1.1 (1-3) Result Diagrams: 09/25/19 13:13 09/25/19 13:13 Lab Statement: Any lab studies that have been ordered have been reviewed, and results considered in the medical decision making process. - CT Chest/Thorax CTA CT Interpretation Completed By: Radiologist - IMPRESSION: 1. SIGNIFICANTLY LIMITED STUDY. NO EVIDENCE FOR CENTRAL PULMONARY EMBOLUS. 2. ENLARGED MEDIASTINAL AND BILATERAL HILAR LYMPH NODES SUGGESTIVE OF SARCOIDOSIS ALTHOUGH THE POSSIBILITY OF A NEOPLASTIC PROCESSES SUCH LYMPHOMA CANNOT BE EXCLUDED. 3. SMALL PULMONARY NODULES. IF THE PATIENT HAS RISK FACTORS RECOMMEND A FOLLOW- UP LOW-DOSE NONCONTRAST CT OF THE CHEST IN ONE YEARS TIME. 4. HEPATIC STEATOSIS. 5. SPLENOMEGALY. ED physician has reviewed this imaging report. - EKG 1305 Cardiac Rate: NL - 81 BPM EKG Rhythm: Sinus Rhythm ST Segment: Normal Ectopy: None Summary of EKG Findings: ED physician has reviewed and interpreted this EKG Re-Evaluation - Re-Evaluation First Eval Re-Evaluation Time: 16:35 Change: Improved Comment: patient agrees to discharge Chest Pain Course/Dx - Course Course Of Treatment: Ms. Kwok has a BMI nearly 70 and the sudden onset of chest pain and shortness of breath while sitting. I was concerned for the possibility of a pulmonary embolism and obtained a CTA when her labs would allow it. She has no PE or infiltrate but she was noted to have a lot of mediastinal lymphadenopathy consistent with sarcoidosis or possible neoplasm. I spoke with Dr. Teague volunteered to see the patient in his office next week and I will treat her symptomatically. Her pulse ox was generally in the low 90s while she was here and it dropped a little bit when we ambulated her but she was asymptomatic. - Diagnoses Provider Diagnoses: Lymphadenopathy - Provider Notifications Discussed Care Of Patient With: Soy Teague Time Discussed With Above Provider: 16:31 Instructed by Provider To: Other - Dr. Teague, oncology, will follow up with patient in his office Discharge ED - Sign-Out/Discharge Documenting (check all that apply): Patient Departure - Discharge Plan Condition: Stable Disposition: HOME Patient Education Materials: Lymphadenopathy (ED) Referrals: Soy Teague MD [Medical Doctor] - Additional Instructions: Follow up with Dr. Teague in 1 week. Return to the Emergency Department for new or worsening symptoms. - Billing Disposition and Condition Condition: STABLE Disposition: Home - Attestation Statements Document Initiated by Scribe: Yes Documenting Scribe: Opal Gastelum Provider For Whom Scribe is Documenting (Include Credential): Jhoyn Morales MD Scribe Attestation: IOpal, scribed for Jhony Morales MD on 09/25/19 at 2121. Scribe Documentation Reviewed: Yes Provider Attestation: The documentation as recorded by the scribe, Opal Gastelum accurately reflects the service I personally performed and the decisions made by me, Jhony Morales MD Status of Luis[place]susu Document: Viewed
[2019-09-25] MEDS ORDERED: Iodixanol* (CONTRAST) 320 MG/ML 100 ML SDV IV ONE (15:35)
[2019-09-25 17:02] VITALS: BP 143/101
== END 2019-09-25 17:01 | disposition home or self-care (01) ==
LOC: ED 13:03
DX: R59.0 Localized enlarged lymph nodes (principal); R91.1 Solitary pulmonary nodule; K76.0 Fatty (change of) liver, not elsewhere classified; R16.1 Splenomegaly, not elsewhere classified; R06.02 Shortness of breath; R07.89 Other chest pain; R73.03 Prediabetes; Z79.84 Long term (current) use of oral hypoglycemic drugs; I10 Essential (primary) hypertension; Z79.899 Other long term (current) drug therapy; Z88.1 Allergy status to other antibiotic agents; Z88.0 Allergy status to penicillin
CPT/HCPCS: 36415; 71275; 80053; 84484; 85025; 85379; 85610; 93005; 99282; Q9967

== ENCOUNTER 2019-10-06 18:08 | Emergency (ER) | payer BC ==
[2019-10-06] MEDS ORDERED: methylPREDNISolone 125 MG* 2 ML VIAL IV ONE (18:54)
[2019-10-06] MEDS ORDERED: Albuterol/Ipratropium NEB.SOL* Albuterol 2.5 MG/Ipratropium 0.5 MG 3 ML INH ONE (18:54)
[2019-10-06 19:19] LABS: ABS Basophils 0.1 10^3/ul (0-0.2); ABS Eosinophils 0.2 10^3/ul (0-0.6); ABS Lymphocytes 1.7 10^3/ul (1.0-4.8); ABS Monocytes 0.8 10^3/ul (0-0.8); ABS Neutrophils 6.1 10^3/ul (1.5-7.7); Hematocrit 39 % (35-47); Hemoglobin 13.2 g/dL (12.0-16.0); Lymphocyte % 19.1 %; Mean Corpuscular HGB Conc 34 g/dL (31-36); Mean Corpuscular Hemoglobin 27 pg (27-31); Mean Corpuscular Volume 81 fL (80-97); Mean Platelet Volume 7.4 fL (7.4-10.4); Platelet Count 330 10^3/uL (150-450); Red Blood Count 4.81 10^6 /uL (3.70-4.87); Red Cell Distribution Width 17 % (10-15); White Blood Count 8.9 10^3/uL (3.5-10.8)
[2019-10-06 19:36] LABS: Albumin 3.4 g/dL (3.2-5.2); Albumin/Globulin Ratio 1.1 (1-3); BUN/Creatinine Ratio 25.4 (8-20); C Reactive Protein 33.01 mg/L (<8.01); Calcium 8.8 mg/dL (8.6-10.3); EGFR Non-African American 117.4 (>60); Globulin 3.2 g/dL (2-4); Magnesium 1.8 mg/dL (1.9-2.7); Potassium 3.8 mmol/L (3.5-5.0); Total Bilirubin 0.5 mg/dL (0.2-1.0); Total Protein 6.6 g/dL (6.4-8.9)
[2019-10-06 19:37] LABS: Troponin I 0.01 ng/mL (<0.03)
[2019-10-06] MEDS ORDERED: Magnesium Sulfate 2 GM IV* 2 GM/50 ML BAG IVPB ONE (20:18)
--- NOTE | 2019-10-06 20:22 | ED ---
Respiratory - HPI Summary HPI Summary: 34 year old female presents with cough for the past week. States that her cough has worsened over the past couple days and become more productive. She denies any fevers. States that she was here a week ago and diagnosed with lymphadenopathy in follow-up with oncology. She follow-up with oncology which told should follow-up with pulmonology. She has not followed up with pulmonology yet. She sees been using an inhaler and has been helping. She was on steroids which was helping while she was on such. She has a family history asthma but no personal history asthma. She is nonsmoker. No recent travel. No family history of blood clots. He is not on hormone therapy. Had a negative CTA a week ago. She denies any chest pain. She has been wheezing. - History of Current Complaint Chief Complaint: EDShortnessOfBreath Stated Complaint: SOB PER PT Time Seen by Provider: 10/06/19 18:38 Pain Intensity: 0 Sputum Amount: None - Allergy/Home Medications Allergies/Adverse Reactions: Allergies Allergy/AdvReac Type Severity Reaction Status Date / Time amoxicillin [From Augmentin] Allergy Unknown Verified 10/06/19 18:11 Reaction Details clavulanic acid Allergy Unknown Verified 10/06/19 18:11 [From Augmentin] Reaction Details Home Medications: Home Medications Cetirizine* [ZyrTEC 10 MG TAB*] 10 mg PO DAILY 09/25/19 [History Confirmed 10/05] Irbesartan/Hydrochlor 150/12.5 [Irbesartan/Hydrochlorothi 150-12.5 mg] 1 tab PO DAILY 09/25/19 [History Confirmed 10/06/19] Saline NASAL SPRAY 0.65%* [Sodium Chloride 0.65% Nasal [place]*] 2 spray BOTH NARES TID PRN 09/25/19 [History Confirmed 10/06/19] amLODIPine TAB* [Norvasc 5 mg TAB*] 10 mg PO DAILY 09/25/19 [History Confirmed 10/06/19] metFORMIN* [Glucophage 500 MG TAB *] 1,000 mg PO BID 09/25/19 [History Confirmed 10/06/19] predniSONE 10 mg TAB [Deltasone 10 MG TAB*] 40 mg PO DAILY 09/25/19 [History Confirmed 10/06/19] DOXYcycline CAP(*) [DOXYcycline 100MG CAP(*)] 100 mg PO BID #13 cap 10/06/19 [Rx ] predniSONE 50 mg TAB [Deltasone 50 mg TAB] 50 mg PO DAILY #4 tab 10/06/19 [Rx] PMH/Surg Hx/FS Hx/Imm Hx Endocrine/Hematology History: Reports: Hx Diabetes - borderline Cardiovascular History: Reports: Hx Hypertension Respiratory History: Denies: Hx Asthma, Hx Chronic Obstructive Pulmonary Disease (COPD) - Surgical History Surgery Procedure, Year, and Place: Hysterectomy. Toe surgery. T&A Infectious Disease History: No Infectious Disease History: Denies: Traveled Outside the [place] in Last 30 Days - Family History Known Family History: Positive: Hypertension, Diabetes, Respiratory Disease, Other - cancer - Social History Alcohol Use: Rare Substance Use Type: Reports: None Hx Tobacco Use: No Smoking Status (MU): Never Smoked Tobacco Review of Systems Negative: Fever, Chills Negative: Chest Pain Positive: Shortness Of Breath, Cough Negative: Abdominal Pain All Other Systems Reviewed And Are Negative: Yes Physical Exam Triage Information Reviewed: Yes Vital Signs On Initial Exam: Initial Vitals Temp Pulse Resp BP Pulse Ox 99.4 F 90 22 139/90 93 10/06/19 18:11 10/06/19 18:11 10/06/19 18:11 10/06/19 18:11 10/06/19 18:11 Vital Signs Reviewed: Yes Appearance: Positive: Well-Appearing Skin: Positive: Warm, Dry Head/Face: Positive: Normal Head/Face Inspection Eyes: Positive: Normal, EOMI, ESTRELLITA, Conjunctiva Clear ENT: Positive: Normal ENT inspection, Pharynx normal, TMs normal Respiratory/Lung Sounds: Positive: Breath Sounds Present, Wheezes Cardiovascular: Positive: Normal, RRR Abdomen Description: Positive: Nontender, Soft Bowel Sounds: Positive: Present Musculoskeletal: Positive: Normal Neurological: Positive: Normal Psychiatric: Positive: Normal Procedures - Sedation Patient Received Moderate/Deep Sedation with Procedure: No Diagnostics - Vital Signs Vital Signs Temp Pulse Resp BP Pulse Ox 10/06/19 20:17 98.7 F 10/06/19 20:00 82 23 92 10/06/19 19:29 84 16 99 10/06/19 19:14 93 28 93/72 88 10/06/19 19:00 86 22 89 10/06/19 18:44 86 124/86 94 10/06/19 18:43 89 91 10/06/19 18:11 99.4 F 90 22 139/90 93 - Laboratory Lab Results: Lab Results 10/06/19 10/06/19 10/06/19 Range/Units 19:10 19:10 19:10 WBC 8.9 (3.5-10.8) 10^3/uL RBC 4.81 (3.70-4.87) 10^6 /uL Hgb 13.2 (12.0-16.0) g/dL Hct 39 (35-47) % MCV 81 (80-97) fL MCH 27 (27-31) pg MCHC 34 (31-36) g/dL RDW 17 H (10-15) % Plt Count 330 (150-450) 10^3/uL MPV 7.4 (7.4-10.4) fL Neut % (Auto) 68.6 % Lymph % (Auto) 19.1 % [place] % (Auto) 9.6 % Eos % (Auto) 2.0 % Baso % (Auto) 0.7 % Absolute Neuts (auto) 6.1 (1.5-7.7) 10^3/ul Absolute Lymphs (auto) 1.7 (1.0-4.8) 10^3/ul Absolute Monos (auto) 0.8 (0-0.8) 10^3/ul Absolute Eos (auto) 0.2 (0-0.6) 10^3/ul Absolute Basos (auto) 0.1 (0-0.2) 10^3/ul Absolute Nucleated RBC 0.0 10^3/ul Nucleated RBC % 0.0 Sodium 137 (135-145) mmol/L Potassium 3.8 (3.5-5.0) mmol/L Chloride 101 (101-111) mmol/L Carbon Dioxide 31 (22-32) mmol/L Anion Gap 5 (2-11) mmol/L BUN 15 (6-24) mg/dL Creatinine 0.59 (0.51-0.95) mg/dL Est GFR ( Amer) 142.0 (>60) Est GFR (Non-Af Amer) 117.4 (>60) BUN/Creatinine Ratio 25.4 H (8-20) Glucose 91 (70-100) mg/dL Lactic Acid 0.8 (0.5-2.0) mmol/L Calcium 8.8 (8.6-10.3) mg/dL Magnesium 1.8 L (1.9-2.7) mg/dL Total Bilirubin 0.50 (0.2-1.0) mg/dL AST 40 H (13-39) U/L ALT 71 H (7-52) U/L Alkaline Phosphatase 113 H (34-104) U/L Troponin I 0.01 (<0.03) ng/mL C-Reactive Protein 33.01 H (<8.01) mg/L B-Natriuretic Peptide (<=100) pg/mL Total Protein 6.6 (6.4-8.9) g/dL Albumin 3.4 (3.2-5.2) g/dL Globulin 3.2 (2-4) g/dL Albumin/Globulin Ratio 1.1 (1-3) 10/06/19 Range/Units 19:10 WBC (3.5-10.8) 10^3/uL RBC (3.70-4.87) 10^6 /uL Hgb (12.0-16.0) g/dL Hct (35-47) % MCV (80-97) fL MCH (27-31) pg MCHC (31-36) g/dL RDW (10-15) % Plt Count (150-450) 10^3/uL MPV (7.4-10.4) fL Neut % (Auto) % Lymph % (Auto) % [place] % (Auto) % Eos % (Auto) % Baso % (Auto) % Absolute Neuts (auto) (1.5-7.7) 10^3/ul Absolute Lymphs (auto) (1.0-4.8) 10^3/ul Absolute Monos (auto) (0-0.8) 10^3/ul Absolute Eos (auto) (0-0.6) 10^3/ul Absolute Basos (auto) (0-0.2) 10^3/ul Absolute Nucleated RBC 10^3/ul Nucleated RBC % Sodium (135-145) mmol/L Potassium (3.5-5.0) mmol/L Chloride (101-111) mmol/L Carbon Dioxide (22-32) mmol/L Anion Gap (2-11) mmol/L BUN (6-24) mg/dL Creatinine (0.51-0.95) mg/dL Est GFR ( Amer) (>60) Est GFR (Non-Af Amer) (>60) BUN/Creatinine Ratio (8-20) Glucose (70-100) mg/dL Lactic Acid (0.5-2.0) mmol/L Calcium (8.6-10.3) mg/dL Magnesium (1.9-2.7) mg/dL Total Bilirubin (0.2-1.0) mg/dL AST (13-39) U/L ALT (7-52) U/L Alkaline Phosphatase (34-104) U/L Troponin I (<0.03) ng/mL C-Reactive Protein (<8.01) mg/L B-Natriuretic Peptide 50 (<=100) pg/mL Total Protein (6.4-8.9) g/dL Albumin (3.2-5.2) g/dL Globulin (2-4) g/dL Albumin/Globulin Ratio (1-3) Result Diagrams: 10/06/19 19:10 10/06/19 19:10 Lab Statement: Any lab studies that have been ordered have been reviewed, and results considered in the medical decision making process. - Radiology chest Radiology Interpretation Completed By: ED Physician Summary of Radiographic Findings: potential pneumonia - EKG No standard instances Cardiac Rate: NL EKG Rhythm: Sinus Rhythm Summary of EKG Findings: sinus rhythm Re-Evaluation - Re-Evaluation First Eval Re-Evaluation Time: 20:26 Change: Improved Comment: feeling better Disposition - Course Course Of Treatment: 34 year old female presents with cough for the past week. States that her cough has worsened over the past couple days and become more productive. She denies any fevers. States that she was here a week ago and diagnosed with lymphadenopathy in follow-up with oncology. She follow-up with oncology which told should follow-up with pulmonology. She has not followed up with pulmonology yet. She sees been using an inhaler and has been helping. She was on steroids which was helping while she was on such. She has a family history asthma but no personal history asthma. She is nonsmoker. No recent travel. No family history of blood clots. He is not on hormone therapy. Had a negative CTA a week ago. She denies any chest pain. She has been wheezing. On exam wheezing noted. Gave breathing treatments with improvement. Chest x- ray shows potential pneumonia so treat with doxycycline. White blood count normal. Troponin normal. Discussed will treat with steroid and Doxy. Told to follow pulmonology. Patient understands agrees with the plan. - Differential Dx - Cardiopulmonary Differential Diagnoses - Cardiopulmonary: Asthma, Bronchitis, Lower Resp Infection - Diagnoses Provider Diagnoses: Bronchitis Discharge ED - Sign-Out/Discharge Documenting (check all that apply): Patient Departure - Discharge Plan Condition: Good Disposition: HOME Prescriptions: DOXYcycline CAP(*) [DOXYcycline 100MG CAP(*)] 100 mg PO BID #13 cap predniSONE 50 mg TAB [Deltasone 50 mg TAB] 50 mg PO DAILY #4 tab Patient Education Materials: Acute Bronchitis (ED) Forms: *Work Release Referrals: Rhonda Telles NP [Primary Care Provider] - Additional Instructions: Use inhaler one puff every 4 hours for cough as needed Take steroid once a day for 4 days take doxycyline twice a day for 7 days follow up with pulmonology Follow up with primary care physician in 5 days Return to ED if develop any new or worsening symptoms - Billing Disposition and Condition Condition: GOOD Disposition: Home
[2019-10-06] MEDS ORDERED: DOXYcycline CAP(*) 100 MG PO ONE (20:26)
[2019-10-06 21:32] VITALS: BP 144/83
== END 2019-10-06 21:31 | disposition home or self-care (01) ==
LOC: ED 18:08
DX: J40 Bronchitis, not specified as acute or chronic (principal); R05 Cough; R06.02 Shortness of breath; R73.03 Prediabetes; I10 Essential (primary) hypertension; Z79.52 Long term (current) use of systemic steroids; Z79.899 Other long term (current) drug therapy
CPT/HCPCS: 36415; 71046; 80053; 83605; 83735; 83880; 84484; 85025; 86140; 87040; 93005; 96365; 96375; 99283; A9270-GY; J2930; J3475